=== PATIENT | female | born 1985 | race Caucasian/White ===

== ENCOUNTER 2024-01-11 09:54 | Inpatient (IN) | payer MEDICAID ==
[~2024-01-11] VITALS: Ht 165.1 cm; Wt 65.0 kg
[2024-01-11 11:23] LABS: CLARITY URINE CLOUDY (CLEAR); COLOR URINE YELLOW (YELLOW); GLUCOSE URINE NEGATIVE (NEGATIVE); KETONES URINE TRACE (NEGATIVE); LEUKOCYTE ESTERASE URINE 2+ (NEGATIVE); NITRITE URINE POSITIVE (NEGATIVE); OCCULT BLOOD URINE 2+ (NEGATIVE); PROTEIN URINE TRACE (NEGATIVE); SPECIFIC GRAVITY URINE 1.011 (1.005-1.030)
[2024-01-11 12:14] LABS: SQUAMOUS EPITHELIAL CELL URINE 2+ /lpf (RARE/1+)
[2024-01-11 12:15] LABS: BACTERIA URINE 4+; WBC URINE 50-100 /hpf (0-2)
[2024-01-11 13:43] LABS: BASOPHILS % 0.1 % (0.0-2.0); EOSINOPHILS % 0.5 % (0.0-5.0); HEMATOCRIT. 37.3 % (36.0-48.0); HEMOGLOBIN. 12.5 g/dL (12.0-16.0); LYMPHOCYTES % 17.1 % (20.0-50.0); MEAN CORPUSCULAR HEMOGLOBIN 29.8 pg (28.0-32.0); MEAN CORPUSCULAR HGB CONC 33.4 g/dL (31.0-37.0); MEAN CORPUSCULAR VOLUME 89.2 fL (81.0-99.0); MONOCYTES % 9.5 % (2.0-8.0); NEUTROPHILS % 72.8 % (40.0-76.0); PLATELET 432 x1000/uL (130-400); RED BLOOD CELL COUNT 4.19 mill/uL (4.2-5.4); RED CELL DISTRIBUTION WIDTH 14.5 % (11.6-14.6)
[2024-01-11 13:46] LABS: ALANINE AMINOTRANSFERASE 61 IU/L (10-49); ALBUMIN 4.5 g/dL (3.2-4.8); ASPARTATE AMINOTRANSFERASE 34 IU/L (<34); BILIRUBIN TOTAL 0.7 mg/dL (0.1-1.0); CALCIUM 9.7 mg/dL (8.7-10.4); CARBON DIOXIDE 26 mEq/L (21-32); CHLORIDE 100 mEq/L (98-107); CREATININE 0.8 mg/dL (0.6-1.0); GLUCOSE 96 mg/dL (70-105); POTASSIUM 3.9 mEq/L (3.5-5.1); PROTEIN TOTAL 7.4 g/dL (6.0-8.3); SODIUM 134 mEq/L (136-145); UREA NITROGEN BLOOD 9 mg/dL (9-23)
[2024-01-11 14:02] LABS: HCG SCREEN NEGATIVE
[2024-01-11] MEDS: CEFTRIAXONE 1GM/50ML 50 ML IV ONE (17:08)
[2024-01-11] MEDS ORDERED: DOCUSATE SODIUM 100MG CAPSULE PO PRN (19:15)
[2024-01-11] MEDS ORDERED: IPRATROPIUM/ALBUTEROL 0.5-3(2.5)MG/3ML NEB HHN PRN (19:15)
[2024-01-11] MEDS ORDERED: MAGNESIUM/ALUMINUM HYDROXIDE/SIMETHICONE 30ML UDC PO PRN (19:15)
[2024-01-11] MEDS ORDERED: ONDANSETRON HCL 4MG/2ML INJ IV PRN (19:15)
[2024-01-11] MEDS ORDERED: CLONIDINE 0.1MG TABLET PO PRN (19:15)
[2024-01-11 20:00] VITALS: BP 112/69; PULSE 88; RESP 20; TEMP 98.1
[2024-01-11] MEDS: SODIUM CHLORIDE 0.9% 1,000 ML IV SCH (21:09)
[2024-01-11] MEDS: FAMOTIDINE 20MG TABLET PO SCH (21:09)
[2024-01-12] VITALS: BP 109/66; PULSE 106; RESP 20; TEMP 99.7
[2024-01-12] MEDS: KETOROLAC 15MG/ML VIAL IV PRN (00:03)
[2024-01-12 04:00] VITALS: BP 91/98; PULSE 72; RESP 20; TEMP 96.6
[2024-01-12 07:44] LABS: BASOPHILS % 0.3 % (0.0-2.0); EOSINOPHILS % 1.1 % (0.0-5.0); HEMATOCRIT. 33.9 % (36.0-48.0); HEMOGLOBIN. 11.9 g/dL (12.0-16.0); LYMPHOCYTES % 24.9 % (20.0-50.0); MEAN CORPUSCULAR HEMOGLOBIN 31.1 pg (28.0-32.0); MEAN CORPUSCULAR VOLUME 88.9 fL (81.0-99.0); MEAN PLATELET VOLUME 8.2 fl (7.4-10.4); MONOCYTES % 9.1 % (2.0-8.0); NEUTROPHILS % 64.6 % (40.0-76.0); PLATELET 430 x1000/uL (130-400); RED BLOOD CELL COUNT 3.81 mill/uL (4.2-5.4); RED CELL DISTRIBUTION WIDTH 14.6 % (11.6-14.6); WHITE BLOOD COUNT 10.6 x1000/uL (4.5-11.0)
[2024-01-12 08:00] VITALS: BP 98/59; PULSE 72; RESP 20; TEMP 97.6
[2024-01-12 08:18] LABS: ALANINE AMINOTRANSFERASE 40 IU/L (10-49); ASPARTATE AMINOTRANSFERASE 19 IU/L (<34); BILIRUBIN TOTAL 0.5 mg/dL (0.1-1.0); CALCIUM 9.1 mg/dL (8.7-10.4); CARBON DIOXIDE 25 mEq/L (21-32); CHLORIDE 102 mEq/L (98-107); CHOLESTEROL 237 mg/dL (<200); CREATININE 0.7 mg/dL (0.6-1.0); GLUCOSE 74 mg/dL (70-105); HDL CHOLESTEROL 28 mg/dL (>65); LDL CHOLESTEROL 177 mg/dL (5-100); POTASSIUM 3.9 mEq/L (3.5-5.1); PROTEIN TOTAL 6.6 g/dL (6.0-8.3); SODIUM 135 mEq/L (136-145); T4 FREE 1.26 ng/dL (0.89-1.76); THYROID STIMULATING HORMONE 3.24 uIU/mL (0.55-4.78); TRIGLYCERIDE 250 mg/dL (0-150); UREA NITROGEN BLOOD 11 mg/dL (9-23)
[2024-01-12 12:00] VITALS: BP 153/54; PULSE 51; RESP 20; TEMP 97.8
[2024-01-12 16:00] VITALS: BP_SYST 118; BP_SYST 141; BP_DIAS 58; BP_DIAS 76; PULSE 60; PULSE 91; RESP 20; TEMP 97.5; TEMP 98.6
[2024-01-12 17:44] LABS: BG BASE EXCESS 0.1 mmol/L (-2.0-2.0); BG CARBOXYHEMOGLOBIN 0.4 % (0.5-1.5); BG DEOXYHEMOGLOBIN 4.2 % (0.0-5.0); BG FRACTION INSPIRED OXYGEN 21; BG HCO3 ACT 23.1 mmol/L (22.0-26.0); BG METHEMOGLOBIN 0.2 % (0.0-1.5); BG OXYGEN SATURATION 95.8 % (92.0-98.5); BG OXYHEMOGLOBIN 95.2 % (94.0-97.0); BG PCO2 32.7 mmHg (35.0-45.0); BG PH 7.467 (7.350-7.450); BG PO2 79.2 mmHg (75.0-100.0); BG SAMPLE SITE RIGHT BRACHIAL; BG TOTAL HEMOGLOBIN 13.9 g/dL (12.0-18.0); BG VENT MODE ROOM AIR
[2024-01-12 20:00] VITALS: BP 121/78; PULSE 100; RESP 20; TEMP 99.5
[2024-01-12] MEDS: ATORVASTATIN CALCIUM 40MG TABLET PO SCH (20:52)
[2024-01-12] MEDS: CEFTRIAXONE 1GM/50ML 50 ML IV SCH (20:52)
[2024-01-13] VITALS: BP 105/68; PULSE 87; RESP 20; TEMP 97.9
[2024-01-13 01:28] LABS: CREATINE KINASE 47 IU/L (34-145); CREATINE KINASE MB FRACTION < 0.5 ng/mL (0.5-3.6)
[2024-01-13 01:33] LABS: TROPONIN I HIGH SENSITIVITY < 4 ng/L (3.0-34)
[2024-01-13 04:00] VITALS: BP 97/62; PULSE 71; RESP 20; TEMP 97.7
[2024-01-13 08:00] VITALS: BP 98/69; PULSE 73; RESP 18; TEMP 97.9
[2024-01-13 08:01] LABS: CREATINE KINASE 40 IU/L (34-145)
[2024-01-13 09:55] LABS: CREATINE KINASE MB FRACTION < 0.0 ng/mL (0.5-3.6); TROPONIN I HIGH SENSITIVITY < 4 ng/L (3.0-34)
[2024-01-13 12:00] VITALS: BP 102/63; PULSE 69; RESP 18; TEMP 97.5
[2024-01-13 16:00] VITALS: BP 106/71; PULSE 74; RESP 19; TEMP 97.7
[2024-01-13 20:00] VITALS: BP 114/64; PULSE 78; RESP 19; TEMP 97.9
[2024-01-14] VITALS: BP 101/65; PULSE 65; RESP 19; TEMP 97.3
[2024-01-14 04:00] VITALS: BP 95/65; PULSE 65; RESP 19; TEMP 97.1
[2024-01-14 06:04] LABS: CALCIUM 8.9 mg/dL (8.7-10.4); CARBON DIOXIDE 22 mEq/L (21-32); CHLORIDE 110 mEq/L (98-107); CREATININE 0.6 mg/dL (0.6-1.0); GLUCOSE 93 mg/dL (70-105); POTASSIUM 3.9 mEq/L (3.5-5.1); SODIUM 141 mEq/L (136-145); UREA NITROGEN BLOOD 7 mg/dL (9-23)
[2024-01-14 06:47] LABS: HEMATOCRIT 34.2 % (36.0-48.0); HEMOGLOBIN 11.5 g/dL (12.0-16.0); MEAN CORPUSCULAR HEMOGLOBIN 30.2 pg (28.0-32.0); MEAN CORPUSCULAR HGB CONC 33.7 g/dL (31.0-37.0); MEAN CORPUSCULAR VOLUME 89.8 fL (81.0-99.0); PLATELET 528 x1000/uL (130-400); RED BLOOD CELL COUNT 3.81 mill/uL (4.2-5.4); RED CELL DISTRIBUTION WIDTH 14.5 % (11.6-14.6); WHITE BLOOD COUNT 7.5 x1000/uL (4.5-11.0)
[2024-01-14 08:00] VITALS: BP 106/60; PULSE 66; RESP 19; TEMP 97.5
[2024-01-14] MEDS: ACETAMINOPHEN 325MG TABLET PO PRN (08:55)
[2024-01-14] MEDS ORDERED: LEVO750T68 PO (11:39)
[2024-01-14] MEDS ORDERED: ATOR40TA70 PO (11:39)
[2024-01-14] MEDS ORDERED: FAMO-135 PO (11:39)
[2024-01-14 12:18] VITALS: BP 113/75; PULSE 73; TEMP 97.7; O2SAT 95
== END 2024-01-14 12:58 | disposition home or self-care (01) | DRG 463 ==
LOC: ER 09:54 → 6EST 16:08 → EDBEDREQ 16:11 → EDBEDREQTM 16:11
PROVIDERS: ADMIT Internal Medicine; ATTEND Internal Medicine
DX: N12 Tubulo-interstitial nephritis, not specified as acute or chronic (principal); K66.1 Hemoperitoneum; K76.0 Fatty (change of) liver, not elsewhere classified; B96.20 Unspecified Escherichia coli [E. coli] as the cause of diseases classified elsewhere; N20.0 Calculus of kidney; M10.9 Gout, unspecified; D25.9 Leiomyoma of uterus, unspecified; Z98.891 History of uterine scar from previous surgery; Z87.442 Personal history of urinary calculi; Z79.899 Other long term (current) drug therapy
CPT/HCPCS: 36415; 36600; 71045; 74176; 76830; 76856; 80048; 80053; 80061; 81003; 82375; 82550; 82553; 82805; 83605; 84145; 84439; 84443; 84484; 84703; 85025; 85027; 87077; 87186; 93005; 93970; 99285; J0696; J1885; J7030